=== PATIENT | female | born 1980 | race African-American/Black ===

== ENCOUNTER 2018-08-18 18:09 | Emergency (ER) | payer MEDICARE ==
[~2018-08-18] VITALS: Ht 167.6 cm; Wt 136.1 kg
[~2018-08-18 18:09] MED LIST: ALPR1TAB2 PO; CYCL10TA2 PO; FLUO40CA9 PO; FURO-68 PO
[2018-08-18 18:44] VITALS: BP 153/88
[2018-08-18] MEDS ORDERED: MORPHINE SULFATE 10 MG/ML VIAL. SQ ONE (19:15)
--- NOTE | 2018-08-18 19:42 | PHYS DOC ---
Past Medical History Past Medical History: Arthritis, Fibromyalgia Additional Past Medical Histor: obese, sjornes syndrome Past Surgical History: Other Additional Past Surgical Histo: dental extraction, cervical spine Alcohol Use: Occasionally Drug Use: None Adult General Chief Complaint Chief Complaint: LOWER EXT PAIN [facility] HPI Patient is a 38 year old female who presents with knee and hip pain. The patient has nodular arthritis as well as other chronic pain conditions. She states that her at home pain medication has not been controlling her pain today. She came in to have treatment for breakthrough pain. She takes oxycodone at home. She does have a pain contract with her provider. Review of Systems Review of Systems Constitutional: Denies fever or chills [] Respiratory: Denies cough or shortness of breath [] Cardiovascular: No additional information not addressed in HPI [] GI: Denies abdominal pain, nausea, vomiting, bloody stools or diarrhea [] : Denies dysuria or hematuria [] Musculoskeletal: See history of present illness Integument: Denies rash or skin lesions [] Neurologic: Denies headache, focal weakness or sensory changes [] Endocrine: Denies polyuria or polydipsia [] All other systems were reviewed and found to be within normal limits, except as documented in this note. Current Medications Current Medications Current Medications Medications (Trade) Dose Ordered Sig/Jamarcus Start Time Stop Time Status Last Admin Dose Admin Morphine Sulfate (Morphine Sulfate) 10 mg 1X ONCE 08/18/18 19:15 08/18/18 19:16 DC 08/18/18 19:49 10 MG Allergies Allergies Allergies Coded Allergies Type Severity Reaction Last Updated Verified ketorolac Allergy Unknown "makes me feel weird" 08/13/14 No tizanidine Allergy Unknown "loopy" 08/13/14 No Physical Exam Physical Exam Constitutional: Well developed, well nourished, no acute distress, non-toxic appearance. [] Cardiovascular:Heart rate regular rhythm, no murmur [] Lungs & Thorax: Bilateral breath sounds clear to auscultation [] Abdomen: Bowel sounds normal, soft, no tenderness, no masses, no pulsatile masses. [] Skin: Warm, dry, no erythema, no rash. [] Back: No tenderness, no CVA tenderness. [] Extremities: tenderness to bilateral hips and primarily right knee, no cyanosis , no clubbing, ROM decreased due to pain, no edema. [] Neurologic: Alert and oriented X 3, normal motor function, normal sensory function, no focal deficits noted. [] Psychologic: Affect normal, judgement normal, mood normal. [] Current Patient Data Vital Signs Vital Signs Date Time Temp Pulse Resp B/P (MAP) Pulse Ox O2 Delivery O2 Flow Rate FiO2 08/18/18 19:49 16 99 Room Air 08/18/18 18:44 97.7 102 153/88 (109) 97.7 EKG EKG [] Radiology/Procedures Radiology/Procedures [] Course & Med Decision Making Course & Med Decision Making Pertinent Labs and Imaging studies reviewed. (See chart for details) []The patient was given 10 mg morphine subcutaneous for her breakthrough pain. Dragon Disclaimer Dragon Disclaimer This electronic medical record was generated, in whole or in part, using a voice recognition dictation system. Departure Departure Impression: Primary Impression: Pain Disposition: 01 HOME, SELF-CARE Condition: STABLE Referrals: LAVON WEAVER DO (PCP) Patient Instructions: Chronic Pain Additional Instructions: Follow-up with your pain management physician tomorrow for further evaluation and management of your breakthrough pain. BRI BRISENO APRN Aug 18, 2018 19:42
== END 2018-08-18 20:45 | disposition home or self-care (01) ==
LOC: ER 18:09
DX: M25.561 Pain in right knee (principal); M25.551 Pain in right hip; M25.552 Pain in left hip; G89.29 Other chronic pain; M19.90 Unspecified osteoarthritis, unspecified site; E66.9 Obesity, unspecified; Z68.42 Body mass index [BMI] 45.0-49.9, adult; Z88.8 Allergy status to other drugs, medicaments and biological substances
CPT/HCPCS: 96372; 99283; J2270

== ENCOUNTER 2018-11-26 15:31 | Emergency (ER) | payer MEDICARE ==
[~2018-11-26] VITALS: Ht 167.6 cm; Wt 132.0 kg
[2018-11-26 16:33] VITALS: BP 144/84
[2018-11-26] MEDS ORDERED: MORPHINE SULFATE 10 MG/ML VIAL. IM ONE (17:15)
--- NOTE | 2018-11-26 17:37 | PHYS DOC ---
Past Medical History Past Medical History: Arthritis, Fibromyalgia Additional Past Medical Histor: obese, sjornes syndrome Past Surgical History: Other Additional Past Surgical Histo: dental extraction, cervical spine Alcohol Use: Occasionally Drug Use: None Adult General Chief Complaint Chief Complaint: LOWER EXT PAIN HPI HPI Patient is a 38 year old AA female who presents to the ER with complaints of increased chronic knee pain for the last week. She denies any new injury, numbness, tingling, weakness, redness, warmth, or swelling of either knee. She reports that she has been taking her oxycodone, tizanidine, and prescribed anti- inflammatory with no relief in her symptoms. Pt states that the last time she was here she was given an IM injection of pain medication that helped to get her symptoms under control again. Pt states she is here for pain relief only as she knows that the osteoarthritis in her knees is what is causing her pain. Pt rates the pain as a 10/10 there are no alleviating or aggravating factors, the pain is constant. Review of Systems Review of Systems Constitutional: Denies fever or chills [] Musculoskeletal: See HPI Integument: Denies rash or skin lesions [] Neurologic: Denies focal weakness or sensory changes [] Current Medications Current Medications Current Medications Medications (Trade) Dose Ordered Sig/Jamarcus Start Time Stop Time Status Last Admin Dose Admin Morphine Sulfate (Morphine Sulfate) 10 mg 1X ONCE 11/26/18 17:15 11/26/18 17:16 DC 11/26/18 17:55 10 MG Allergies Allergies Allergies Coded Allergies Type Severity Reaction Last Updated Verified ketorolac Allergy Unknown "makes me feel weird" 08/13/14 No tizanidine Allergy Unknown "loopy" 08/13/14 No Physical Exam Physical Exam Constitutional: Well developed, well nourished, no acute distress, non-toxic appearance, obese. [] HENT: Normocephalic, atraumatic, bilateral external ears normal, nose normal. [] Eyes: conjunctiva normal, no discharge. [] Neck: Normal range of motion, no stridor. [] Lungs & Thorax: respirations even and unlabored Skin: Warm, dry, no erythema, no rash. [] Extremities: No cyanosis, ROM intact of bilateral knees, no deformities Neurologic: Alert and oriented X 3, normal motor function, normal sensory function, no focal deficits noted. [] Psychologic: Affect normal, judgement normal, mood normal. [] Current Patient Data Vital Signs Vital Signs Date Time Temp Pulse Resp B/P (MAP) Pulse Ox O2 Delivery O2 Flow Rate FiO2 11/26/18 17:55 12 97 Room Air 11/26/18 16:33 98.4 92 144/84 (104) 98.4 EKG EKG [] Radiology/Procedures Radiology/Procedures [] Course & Med Decision Making Course & Med Decision Making Pertinent Labs and Imaging studies reviewed. (See chart for details) Dx: chronic knee pain Pt was given one IM injection of 10 mg morphine, pt had requested a shot of 1 mg of dilaudid, I advised the patient the in August she was given morphine and that no dilaudid would be ordered today. Pt was advised to follow up with her orthopedic doctor for further evaluation and treatment. Recommended rest, application of ice or heat for comfort, and elevation. Patient verbalized an understanding of home care, medications, follow-up, and return to ED instructions and was in agreement with the plan of care. [] Dragon Disclaimer Dragon Disclaimer This electronic medical record was generated, in whole or in part, using a voice recognition dictation system. Departure Departure Impression: Primary Impression: Chronic pain of both knees Additional Impression: Inadequate pain control Disposition: 01 HOME, SELF-CARE Condition: STABLE Referrals: LAVON WEAVER DO (PCP) Patient Instructions: Chronic Pain Management-Brief Additional Instructions: You were given an IM injection of morphine for pain control today. Follow up with your orthopedic doctor for further management of your chronic pain in your knees. Return to the ER if symptoms worsen. Problem Qualifiers PADILLA WOODS APRN Nov 26, 2018 17:37
== END 2018-11-26 18:28 | disposition home or self-care (01) ==
LOC: ER 15:31
DX: G89.29 Other chronic pain (principal); M25.561 Pain in right knee; M25.562 Pain in left knee; E66.9 Obesity, unspecified; Z68.42 Body mass index [BMI] 45.0-49.9, adult
CPT/HCPCS: 96372; 99283; J2270

== ENCOUNTER 2019-02-28 20:31 | Emergency (ER) | payer MEDICARE ==
[~2019-02-28] VITALS: Ht 167.6 cm; Wt 141.5 kg
[2019-02-28 20:58] VITALS: BP 157/72
[2019-02-28] MEDS ORDERED: PRED20TA PO (21:23)
--- NOTE | 2019-02-28 21:23 | PHYS DOC ---
Past Medical History Past Medical History: Arthritis, Fibromyalgia Additional Past Medical Histor: obese, sjornes syndrome,NODULE ARTHRITIS,OSTEOARTHRITIS (MAYTE CAPPS APRN) Past Surgical History: Other Additional Past Surgical Histo: dental extraction, cervical spine (MAYTE CAPPS APRN) Additional Information: non smoker Alcohol Use: Occasionally Drug Use: None (MAYTE CAPPS APRN) Adult General Chief Complaint Chief Complaint: PAIN CONTROL HPI HPI Patient is a 39 year old female presents for pain control. Patient has rheumatoid arthritis. Patient has had increased pain the last 2 days. States her pain level is 8 out of 10 describes the pain as sharp, achy, and tight. Has tried prior to arrival to 2 10mg oxycodone's, Zanaflex, naproxen. No associated symptoms. (MAYTE CAPPS APRN) Review of Systems Review of Systems Constitutional: Denies fever or chills [] Eyes: Denies change in visual acuity, redness, or eye pain [] HENT: Denies nasal congestion or sore throat [] Respiratory: Denies cough or shortness of breath [] Cardiovascular: No additional information not addressed in HPI [] GI: Denies abdominal pain, nausea, vomiting, bloody stools or diarrhea [] : Denies dysuria or hematuria [] Musculoskeletal: Denies back pain has joint pain diffusely. Also has nodules on fingers and knuckles. Integument: Denies rash or skin lesions [] Neurologic: Denies headache, focal weakness or sensory changes [] Endocrine: Denies polyuria or polydipsia [] Complete systems were reviewed and found to be within normal limits, except as documented in this note. (MAYTE CAPPS APRN) Current Medications Current Medications Current Medications Medications (Trade) Dose Ordered Sig/Jamarcus Start Time Stop Time Status Last Admin Dose Admin Dexamethasone (Decadron) 10 mg 1X ONCE 02/28/19 22:00 02/28/19 22:00 DC 02/28/19 21:33 10 MG (MAYTE ROSAS DO) Allergies Allergies Allergies Coded Allergies Type Severity Reaction Last Updated Verified ketorolac Allergy Intermediate "makes me feel weird" 02/28/19 No tizanidine Allergy Intermediate "loopy" 02/28/19 No (MAYTE ROSAS DO) Physical Exam Physical Exam Constitutional: Well developed, well nourished, no acute distress, non-toxic appearance. [] HENT: Normocephalic, atraumatic, bilateral external ears normal, oropharynx moist, no oral exudates, nose normal. [] Eyes: PERRLA, EOMI, conjunctiva normal, no discharge. [] Neck: Normal range of motion, no tenderness, supple, no stridor. [] Cardiovascular:Heart rate regular rhythm, no murmur [] Lungs & Thorax: Bilateral breath sounds clear to auscultation [] Abdomen: Bowel sounds normal, soft, no tenderness, no masses, no pulsatile mass es. [] Skin: Warm, dry, no erythema, no rash. [] Back: No tenderness, no CVA tenderness. [] Extremities: Tenderness to joints with nodules on fingers and knuckles., no cyanosis, no clubbing, ROM intact. Neurologic: Alert and oriented X 3, normal motor function, normal sensory function, no focal deficits noted. [] Psychologic: Affect normal, judgement normal, mood normal. [] (MAYTE CAPPS APRN) Current Patient Data Vital Signs Vital Signs Date Time Temp Pulse Resp B/P (MAP) Pulse Ox O2 Delivery O2 Flow Rate FiO2 02/28/ 20:58 98.0 77 16 157/72 (100) 100 Room Air 98.0 (MAYTE ROSAS DO) EKG EKG [] (MAYTE CAPPS APRN) Radiology/Procedures Radiology/Procedures [] (MAYTE CAPPS APRN) Course & Med Decision Making Course & Med Decision Making Pertinent Labs and Imaging studies reviewed. (See chart for details) Patient appears to be having a flare of her RA. Will treat with steroids. Discussed the limitations of pain medications and the recommendations for a flare of steroids. Also discussed the danger of high doses of narcotics. Patient has already had high dose. Will d/c home. (MAYTE CAPSP APRN) Dragon Disclaimer Dragon Disclaimer This electronic medical record was generated, in whole or in part, using a voice recognition dictation system. (MAYTE CAPPS APRN) Departure Departure Impression: Primary Impression: Rheumatoid arthritis flare Disposition: HOME, SELF-CARE Condition: STABLE Referrals: LAVON WEAVER DO (PCP) Patient Instructions: Rheumatoid Arthritis Additional Instructions: Please follow up with primary care doctor and Supervisor [facility] for care. Scripts Prednisone (PREDNISONE) 20 Mg Tablet 1 TAB PO TID for 7 Days, #21 TAB Prov: MAYTE CAPPS APRN 02/28/19 Attending Signature Attending Signature I have reviewed the PA/DRILLER M[employer]IP[employer]INDLE's note and plan of care. I was available for consultation as needed during the patient's visit in the emergency department. I agree with the clinical impression, plan, and disposition. (MAYTE ROSAS DO) MAYTE CAPPS APRN February 28, 2019 21:23 MAYTE ROSAS DO March 03, 2019 05:13
[2019-02-28] MEDS ORDERED: DEXAMETHASONE 4 MG TABLET PO ONE (22:00)
== END 2019-02-28 21:37 | disposition home or self-care (01) ==
LOC: ER 20:31
DX: M06.9 Rheumatoid arthritis, unspecified (principal); M79.7 Fibromyalgia; Z88.6 Allergy status to analgesic agent; Z88.8 Allergy status to other drugs, medicaments and biological substances
CPT/HCPCS: 99283; J8540